=== PATIENT | male | born 1995 | race American Indian/Alaskan Native ===

== ENCOUNTER 2021-06-22 01:39 | Emergency (ER) | payer OTHER ==
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
[2021-06-22 02:51] VITALS: BP 99/54
== END 2021-06-22 02:45 ==
LOC: ED 01:39
CPT/HCPCS: 99282